=== PATIENT | female | born 1940 | race African-American/Black ===

== ENCOUNTER 2017-05-31 20:12 | Emergency (ER) | payer MEDICARE, OTHER ==
[~2017-05-31] VITALS: Ht 160 cm; Wt 66.2 kg
[2017-05-31 20:12] VITALS: BP 195/92
--- NOTE | 2017-05-31 21:12 | PHYS DOC ---
Past History Past Medical History: GERD, High Cholesterol, Hypertension Past Surgical History: Cholecystectomy, Hysterectomy, Pacemaker, Other Alcohol Use: None Drug Use: None Adult General Chief Complaint Chief Complaint: SKIN RASH/ABSCESS [facility] HPI Patient is a 76 year old F who presents with bumpy red rash on the upper chest and left side of the neck. Her rash is itchy and not associated with any other symptoms. She states that she did change her soap about 1 week ago. She has no other exacerbating or alleviating factors Review of Systems Review of Systems Constitutional: Denies fever or chills [] Eyes: Denies change in visual acuity, redness, or eye pain [] HENT: Denies nasal congestion or sore throat [] Respiratory: Denies cough or shortness of breath [] Cardiovascular: No additional information not addressed in HPI [] GI: Denies abdominal pain, nausea, vomiting, bloody stools or diarrhea [] : Denies dysuria or hematuria [] Musculoskeletal: Denies back pain or joint pain [] Integument: Negative except history of present illness Neurologic: Denies headache, focal weakness or sensory changes [] Endocrine: Denies polyuria or polydipsia [] Family History Family History Noncontributory Current Medications Current Medications Medications reviewed Allergies Allergies Allergies Coded Allergies Type Severity Reaction Last Updated Verified erythromycin base Allergy Intermediate 02/28/16 Yes metoclopramide Allergy Unknown 02/28/16 Yes metronidazole Allergy Unknown 02/28/16 Yes Physical Exam Physical Exam Constitutional: Well developed, well nourished, no acute distress, non-toxic appearance. [] HENT: Normocephalic, atraumatic, Eyes: EOMI, conjunctiva normal, no discharge. [] Cardiovascular:Heart rate regular rhythm, Lungs & Thorax: Bilateral breath sounds clear to auscultation [] Abdomen: Bowel sounds normal, soft, no tenderness, no masses, no pulsatile masses. [] Skin: Warm, dry, no erythema, no rash. [] papular raised erythematous rash on the upper chest and neck Extremities: No tenderness, no cyanosis, no clubbing, ROM intact, no edema. [] Neurologic: Alert and oriented X 3, normal motor function, normal sensory function, no focal deficits noted. [] Psychologic: Affect normal, judgement normal, mood normal. [] Current Patient Data Vital Signs Vital Signs Date Time Temp Pulse Resp B/P (MAP) Pulse Ox O2 Delivery O2 Flow Rate FiO2 05/31/17 20:12 98.5 78 20 97 Room Air Course & Med Decision Making Course & Med Decision Making Pertinent Labs and Imaging studies reviewed. (See chart for details) Dragon Disclaimer Dragon Disclaimer This chart was dictated in whole or in part using Voice Recognition software in a busy, high-work load, and often noisy Emergency Department environment. It may contain unintended and wholly unrecognized errors or omissions. Departure Departure: Impression: Primary Impression: Contact dermatitis Disposition: HOME, SELF-CARE Condition: LEFT WITHOUT BEING SEEN Referrals: [facility]AG[facility]RE[address] MD (PCP) Patient Instructions: Contact Dermatitis Additional Instructions: And was seen in the emergency department for rash. No emergency medical condition was found on history or physical exam. Her symptoms are most consistent with contact dermatitis. She is advised consider steroid cream to manage her symptoms. She is advised follow-up with her primary care doctor in the next 3-5 days for further management. She was also advised to return to the emergency room if she develops new or worsening symptoms. Problem Qualifiers Primary Impression: Contact dermatitis Contact dermatitis type: unspecified Contact dermatitis trigger: unspecified trigger Qualified Codes: L25.9 - Unspecified contact dermatitis, unspecified cause THUAN ARGUELLO MD May 31, 2017 21:12
== END 2017-05-31 21:19 | disposition home or self-care (01) ==
LOC: ER 20:12
DX: L25.9 Unspecified contact dermatitis, unspecified cause (principal); K21.9 Gastro-esophageal reflux disease without esophagitis; I10 Essential (primary) hypertension; E78.00 Pure hypercholesterolemia, unspecified; Z95.0 Presence of cardiac pacemaker; Z88.1 Allergy status to other antibiotic agents; Z88.8 Allergy status to other drugs, medicaments and biological substances
CPT/HCPCS: 99281

== ENCOUNTER → 2019-11-05 | Outpatient (CLI) | payer MEDICARE ==
--- NOTE | 2019-11-06 18:05 | RAD ---
BILATERAL SCREENING MAMMOGRAM, 3-D History: Routine screening. Comparison: 05/14/2008 screening mammogram. Technique: MLO and CC digital tomosynthesis (3D) images obtained. Radiologist reviewed these images on dedicated workstation. Findings: Breast Tissue Density B : There are scattered areas of fibroglandular density. There are no dominant masses, suspicious microcalcifications, or architectural distortion. Left sided pacemaker at the axillary level is present. IMPRESSION: No mammographic evidence of malignancy. Recommend routine screening. BI-RADS category 1: Negative. The images were reviewed with computer-aided detection. Patient information is entered into reminder system with a target due date for the next screening mammogram. Mammography is the most sensitive method for finding small breast cancers, but it does not detect them all and is not a substitute for careful clinical examination. A negative mammogram does not negate a clinically suspicious finding and should not result in delay in biopsying a clinically suspicious abnormality. "Our facility is accredited by the [employer] Mammography Program." Electronically signed by: Edwar Rubio MD (11/06/2019 6:02 PM) [facility]
== END | disposition home or self-care (01) ==
LOC: MAMMO 09:43
PROVIDERS: ATTEND Specialist
DX: Z12.31 Encounter for screening mammogram for malignant neoplasm of breast (principal)
CPT/HCPCS: 77063; 77067